=== PATIENT | male | born 2005 | race Caucasian/White ===

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

== ENCOUNTER 2024-07-22 23:02 | Emergency (ER) | payer SELFPAY ==
--- NOTE | ~2024-07-22 | XR_ITS ---
EXAMINATION: XR chest 2V DATE: 07/23/2024 00:04 INDICATION: Rib pain. Cough. TECHNIQUE: Frontal and lateral views of the chest were obtained. COMPARISON: Chest 2 views 07/12/2022 FINDINGS: There is no pneumonia, pleural effusion, or pneumothorax. The heart size is normal. IMPRESSION: 1. No acute cardiopulmonary disease. Reviewed, dictated and finalized at location A.
[2024-07-22 23:14] VITALS: BP 107/63; PULSE 93; RESP 20; TEMP 37; O2SAT 99
--- NOTE | 2024-07-23 01:07 | ED.ABDPAIN ---
HPI - Abdominal Pain General Chief Complaint: Abdominal Pain Stated Complaint: lung pain pain under ribcage, fever Time Seen by Provider: 07/23/24 00:37 History of Present Illness HPI narrative: Patient is a 18-year-old male who presents to the emergency department this evening complaining of bilateral rib pain. Patient states that his son was recently diagnosed with pneumonia and he has been battling an upper respiratory infection and wanted to make sure he does not have a pneumonia. Patient admits to smoking weed and believes that that could be contributing to his symptoms. He denies any chest pain, any nausea, vomiting or any abdominal pain, denies any history of pancreatitis or gallstones, denies any history of alcohol abuse. Denies any fevers or chills at home. There are no additional modifying, alleviating, or precipitating factors at this time. Related Data Allergies Allergy/AdvReac Type Severity Reaction Status Date / Time Penicillins Allergy Unknown RASH Verified 07/22/24 23:03 Review of Systems Review of Systems: All systems are reviewed and are negative unless stated otherwise in the HPI. [facility] Past Medical History Medical History BMI 33.0-33.9,adult BMI 34.0-34.9,adult BMI 36.0-36.9,adult Pilonidal cyst Family History Family History Father Seasonal allergies Mother Diabetes mellitus Hypertension Social History Social History Smoking status: Never smoker Second hand tobacco smoke exposure: No Alcohol intake: current Substance use: never Substance use type: marijuana Last use: daily marijuana use Living arrangements: with family Occupation/Education: occupation Additional occupation/education comments: construction Gender identity (if verbalized by the patient): Male Exam Narrative: General: Alert, awake, afebrile, in no acute distress. HEENT: PERRL, no rhinorrhea, no post nasal drip, oropharynx clear. Cardiovascular: Regular rate and rhythm, no murmurs, rubs or gallops, no peripheral edema. Respiratory: Clear to auscultation bilaterally, no tachypnea, no wheezing, no rhonchi, no rubs, no respiratory distress. Abdomen: Soft, nontender, nondistended, no rebound, no guarding, no peritoneal signs. Musculoskeletal: No joint swelling or deformity, normal muscle tone. Skin: No rashes or petechia, no signs of infection. Neurological: Alert and oriented to person, place, and time. Follows all commands. No focal deficits, speech is clear and fluent. Course Vital Signs Vital signs: Vital Signs Temperature 98.6 F 07/22/24 23:14 Pulse Rate 93 07/22/24 23:14 Respiratory Rate 20 07/22/24 23:14 Blood Pressure 107/63 07/22/24 23:14 Pulse Oximetry 99 07/22/24 23:14 Oxygen Delivery Room Air 07/22/24 23:14 Temperature 98.6 F 07/22/24 23:14 Pulse Rate 93 07/22/24 23:14 Respiratory Rate 20 07/22/24 23:14 Blood Pressure 107/63 07/22/24 23:14 Pulse Oximetry 99 07/22/24 23:14 Oxygen Delivery Room Air 07/22/24 23:14 MDM - Abdominal Pain MDM Narrative Medical decision making narrative: The patient was evaluated by myself in the emergency department. History is obtained from patient who is an independent historian and physical exam was performed. External medical records were reviewed at this time. Imaging studies obtained included CXR which was independently interpreted by me revealing no acute process, which is pending final radiology interpretation. Differential diagnosis considerations include acute viral syndrome, infectious process such as pneumonia, costochondritis. Comorbidities impacting this visit include none. I have evaluated and discussed social determinants of health with the patient that could potentially impact subsequent diagnosis and treatment plans.
== END 2024-07-23 01:17 | disposition home or self-care (01) ==
PROVIDERS: Emergency Provider Emergency Medicine; PCP Family Medicine
DX: B34.9 Viral infection, unspecified (principal); R07.89 Other chest pain
CPT/HCPCS: 71046; 99283